=== PATIENT | female | born 1940 | race Caucasian/White ===

== ENCOUNTER 2018-08-24 13:54 | Inpatient (IN) | payer MEDICARE ==
[~2018-08-24] VITALS: Ht 154.9 cm; Wt 62.8 kg
--- NOTE | 2018-08-24 14:35 | NUR ---
pt to room from lob, changed into gown, responds approp to staff, NAD, comfort measures provided, fiend at BS, call light within reach.
--- NOTE | 2018-08-24 14:36 | NUR ---
ANALYTICAL CHEMIST: PT TO ED ROOM 39 FROM LOBBY AT THIS TIME
--- NOTE | 2018-08-24 14:59 | NUR ---
pt steadily ambulated to BR via personal FWW, back to [facility] awake & comfortable, responds approp to staff, NAD, friend at , call light within reach.
[2018-08-24 15:13] LABS: ALBUMIN 3.8 g/dL (3.4-5.0); ANION GAP 17 mmol/L (5-15); CALCIUM 9.6 mg/dL (8.5-10.1); CHLORIDE 87 mmol/L (98-107)
[2018-08-24 15:15] LABS: BASOPHILS # (AUTO) 0.01 x10^3/uL (0-0.1); BASOPHILS % (AUTO) 0 % (0-1); EOSINOPHILS # (AUTO) 1.06 x10^3/uL (0-0.4); EOSINOPHILS % (AUTO) 9 % (1-7); LYMPHOCYTES # (AUTO) 0.76 x10^3/uL (1-3.4); LYMPHOCYTES % (AUTO) 6 % (22-44); MD NO; MEAN CORPUSCULAR HEMOGLOBIN 34.9 pg (27.0-34.8); MEAN CORPUSCULAR HGB CONC 33.6 g/dL (32.4-35.8); MEAN CORPUSCULAR VOLUME 103.8 fL (80-100); MONOCYTES # (AUTO) 0.58 x10^3/uL (0.2-0.8); MONOCYTES % (AUTO) 5 % (2-9); NEUTROPHILS # (AUTO) 9.63 x10^3/uL (1.8-6.8); NEUTROPHILS % (AUTO) 80 % (42-75); PLATELET COUNT 287 x10^3/uL (130-400); RED BLOOD COUNT 3.76 x10^6/uL (3.82-5.3); RED CELL DISTRIBUTION WIDTH 13.8 % (9.6-15.2)
[2018-08-24 15:26] LABS: ALANINE AMINOTRANSFERASE 19 U/L (12-78); ALKALINE PHOSPHATASE 66 U/L (45-117); BILIRUBIN,TOTAL 0.4 mg/dL (0.2-1.0); CREATININE 3.89 mg/dL (0.55-1.02); FREE T4 (FREE THYROXINE) 1.35 ng/dL (0.76-1.46); TOTAL PROTEIN 7.4 g/dL (6.4-8.2)
[2018-08-24] MEDS ORDERED: SODIUM CHLORIDE 0.9% 1,000 ML IV ONE ×2 (15:29→16:17)
--- NOTE | 2018-08-24 15:55 | NUR ---
pt upright on gurney awake & comfortable. responds approp to staff, NAD, comfort measures provided, friend at BS, call light within reach.
[2018-08-24] MEDS ORDERED: SODIUM CHLORIDE FLUSH 10ML SYR IVF PRN (16:30)
[2018-08-24 16:34] LABS: HEMOGLOBIN A1C 6.4 % (4.2-6.3)
[2018-08-24 16:37] LABS: CULTURE INDICATED? YES; MICROSCOPIC INDICATED
[2018-08-24] MEDS ORDERED: NAPR-685 PO (16:44)
[2018-08-24] MEDS ORDERED: TRIA1TAB3 PO (16:44)
[2018-08-24] MEDS ORDERED: THIA100T27 PO (16:44)
[2018-08-24] MEDS ORDERED: ALPR0.254 PO (16:44)
[2018-08-24] MEDS ORDERED: VITA100T4 PO (16:44)
[2018-08-24] MEDS ORDERED: OMEP20TA62 PO (16:44)
[2018-08-24] MEDS ORDERED: LATA7.5D OP (16:44)
[2018-08-24] MEDS ORDERED: ALLO100T30 PO (16:44)
[2018-08-24] MEDS ORDERED: DORZ10DR21 OP (16:44)
[2018-08-24] MEDS ORDERED: HYDR-3240 PO (16:44)
[2018-08-24] MEDS ORDERED: IRBE300T16 PO (16:44)
[2018-08-24] MEDS ORDERED: PYRI100T2 PO (16:44)
[2018-08-24] MEDS ORDERED: TIOT4MIS3 INH (16:44)
[2018-08-24] MEDS ORDERED: ATOR20TA37 PO (16:44)
[2018-08-24] MEDS ORDERED: ASPI-496 PO (16:44)
[2018-08-24] MEDS ORDERED: ASCO100019 PO (16:44)
[2018-08-24] MEDS ORDERED: METF500T17 PO (16:44)
[2018-08-24] MEDS ORDERED: RANI150T23 PO (16:44)
[2018-08-24] MEDS ORDERED: ATEN50TA41 PO (16:44)
[2018-08-24] MEDS ORDERED: POTA10TA5 PO (16:44)
--- NOTE | 2018-08-24 17:02 | NUR ---
pt upright on gurney awake & comfortable, responds approp to staff, NAD, comfort measures provided, friend at BS, call light within reach.
--- NOTE | 2018-08-24 17:06 | NUR ---
Pt to be admitted to [facility], room 403-1. Report called to Eli.
[2018-08-24 18:01] LABS: CREATINE KINASE, TOTAL 48 U/L (26-192); FOLATE LEVEL 15.1 ng/mL (3.1-17.5)
[2018-08-24 18:03] VITALS: BP 133/57
[2018-08-24] MEDS ORDERED: DICL500C PO (18:23)
[2018-08-24 20:16] VITALS: BP 106/69
[2018-08-24 20:25] LABS: ANION GAP 16 mmol/L (5-15); CHLORIDE 91 mmol/L (98-107); CREATININE 3.16 mg/dL (0.55-1.02)
[2018-08-24] MEDS ORDERED: GUAIFENESIN/DM 200-20MG, 10ML UDC PO PRN (20:30)
[2018-08-24] MEDS ORDERED: OMEPRAZOLE 20 MG CAPSULE.DR PO PRN (20:30)
[2018-08-24] MEDS ORDERED: FAMOTIDINE 20 MG TABLET PO PRN (20:30)
[2018-08-24] MEDS ORDERED: LORazepam 1MG TABLET PO PRN ×4 (20:30)
[2018-08-24] MEDS ORDERED: hydrALAzine 20 MG/ML, 1ML IVPush PRN (20:30)
[2018-08-24] MEDS ORDERED: ACETAMINOPHEN 325 MG TABLET PO PRN (20:30)
[2018-08-24] MEDS ORDERED: LORazepam 2 MG/ML, 1ML IV PRN ×5 (20:30)
[2018-08-24] MEDS ORDERED: ONDANSETRON ODT 4 MG PO PRN (20:30)
[2018-08-24] MEDS ORDERED: HYDROcodone/APAP 5/325 TABLET PO PRN (20:30)
[2018-08-24] MEDS ORDERED: LORazepam 0.5MG TABLET PO PRN (20:30)
[2018-08-24] MEDS ORDERED: DOCUSATE 100 MG CAPSULE PO PRN (20:30)
[2018-08-24] MEDS ORDERED: ONDANSETRON 2MG/ML, 2ML IVPush PRN (20:30)
[2018-08-24] MEDS ORDERED: BISACODYL 10 MG SUPP PR PRN (20:30)
[2018-08-24] MEDS ORDERED: ATORVASTATIN 20 MG TABLET PO PRN (20:30)
[2018-08-24 20:46] LABS: CREATININE,URINE RANDOM 68.1 mg/dL
[2018-08-24] MEDS ORDERED: DICLOXACILLIN 500 MG CAPSULE PO SCH (21:00)
[2018-08-24] MEDS ORDERED: LATANOPROST OPHTH 0.005%, 2.5ML OP SCH (21:00)
[2018-08-24] MEDS ORDERED: LATANOPROST OPHTH 0.005%, 2.5ML EACHEYE SCH (21:00)
[2018-08-24] MEDS ORDERED: DORZOLAMIDE OPHTH 2%, 10ML OP SCH (21:00)
[2018-08-24] MEDS ORDERED: TIMOLOL OPHTH 0.5%, 5ML OP SCH (21:00)
[2018-08-24] MEDS: DIPHENHYDRAMINE 25 MG CAPSULE PO PRN ×2 (22:20→22:45)
[2018-08-24] MEDS: NS + 20MEQ KCL 1,000 ML IV SCH (22:20)
[2018-08-24] MEDS: HYDROcodone/APAP 5/325 TABLET PO SCH ×2 (22:20→22:45)
[2018-08-24] MEDS: CEFTRIAXONE PMX 1GM/50ML 50 ML IV SCH (22:20)
[2018-08-24] MEDS: DICLOXACILLIN 250 MG CAPSULE PO SCH (22:45)
[2018-08-24] MEDS: DORZOLAMIDE EACHEYE SCH (23:17)
[2018-08-24] MEDS: TIMOLOL EACHEYE SCH (23:17)
[2018-08-25 02:00] VITALS: BP 111/71
[2018-08-25] MEDS ORDERED: LEVO88TA4 PO (04:31)
[2018-08-25] MEDS: NS + 20MEQ KCL 1,000 ML IV SCH (05:35)
[2018-08-25 05:43] LABS: CALCIUM 8.3 mg/dL (8.5-10.1); CHLORIDE 97 mmol/L (98-107)
[2018-08-25 05:47] LABS: ANION GAP 14 mmol/L (5-15); CREATININE 2.19 mg/dL (0.55-1.02)
[2018-08-25 05:50] LABS: BASOPHILS # (AUTO) 0.01 x10^3/uL (0-0.1); BASOPHILS % (AUTO) 0 % (0-1); EOSINOPHILS # (AUTO) 0.78 x10^3/uL (0-0.4); EOSINOPHILS % (AUTO) 10 % (1-7); LYMPHOCYTES # (AUTO) 0.72 x10^3/uL (1-3.4); LYMPHOCYTES % (AUTO) 9 % (22-44); MD NO; MEAN CORPUSCULAR HEMOGLOBIN 35.6 pg (27.0-34.8); MEAN CORPUSCULAR HGB CONC 34.7 g/dL (32.4-35.8); MEAN CORPUSCULAR VOLUME 102.8 fL (80-100); MONOCYTES # (AUTO) 0.67 x10^3/uL (0.2-0.8); MONOCYTES % (AUTO) 9 % (2-9); NEUTROPHILS # (AUTO) 5.55 x10^3/uL (1.8-6.8); NEUTROPHILS % (AUTO) 72 % (42-75); PLATELET COUNT 219 x10^3/uL (130-400); RED BLOOD COUNT 3.04 x10^6/uL (3.82-5.3); RED CELL DISTRIBUTION WIDTH 14.1 % (9.6-15.2)
[2018-08-25] MEDS ORDERED: LEVOTHYROXINE 88 MCG TABLET ONE (06:43)
[2018-08-25] MEDS: LEVOTHYROXINE 88 MCG TABLET PO SCH (06:46)
[2018-08-25] MEDS ORDERED: DEXTROSE 4 GM TAB.CHEW PO PRN (07:00)
[2018-08-25] MEDS ORDERED: DEXTROSE 50%, 50ML SYRINGE IVPush PRN (07:00)
[2018-08-25] MEDS ORDERED: GLUCAGON 1 MG IM PRN (07:00)
[2018-08-25 07:26] VITALS: BP 103/60
[2018-08-25] MEDS: INSULIN LISPRO 100 UNITS/ML, PEN SQ-INSULIN SCH ×4 (07:30→21:34)
[2018-08-25] MEDS: THIAMINE 100MG TABLET PO SCH ×2 (08:51→08:55)
[2018-08-25] MEDS: PYRIDOXINE 50MG TABLET PO SCH (08:55)
[2018-08-25] MEDS: DICLOXACILLIN 250 MG CAPSULE PO SCH ×3 (08:55→21:41)
[2018-08-25] MEDS: LATANOPROST OPHTH 0.005%, 2.5ML EACHEYE SCH (08:55)
[2018-08-25] MEDS: MULTIVITAMINS/MINERALS TABLET PO SCH (08:56)
[2018-08-25] MEDS: SENNA/DOCUSATE TABLET PO SCH (08:56)
[2018-08-25] MEDS: SODIUM CHLORIDE FLUSH 10ML SYR IVF SCH ×2 (09:00→21:41)
[2018-08-25] MEDS ORDERED: ASPIRIN 81 MG TABLET EC PO SCH (09:00)
[2018-08-25] MEDS ORDERED: ATENOLOL 50 MG TABLET PO SCH (09:00)
[2018-08-25] MEDS ORDERED: VITAMIN E ACID SUCCINATE 100 UNIT PO SCH (09:00)
[2018-08-25] MEDS ORDERED: DIPHENHYDRAMINE 12.5MG/5ML, 10ML UDC PO PRN (13:30)
[2018-08-25] MEDS ORDERED: CALAMINE LOTION 180ML TP PRN (13:30)
[2018-08-25] MEDS: POTASSIUM CHLORIDE 40 MEQ in SODIUM CHLORIDE 0.45% 1,000 ML IV SCH (13:42)
[2018-08-25 14:15] VITALS: BP 94/58
[2018-08-25] MEDS: POTASSIUM CHLORIDE 20 MEQ TAB.ER.PRT PO SCH (16:43)
[2018-08-25] MEDS: hydrOXyzine 10MG TABLET PO SCH (16:43)
[2018-08-25 18:37] LABS: ANION GAP 11 mmol/L (5-15); CALCIUM 8.6 mg/dL (8.5-10.1); CHLORIDE 103 mmol/L (98-107); CREATININE 1.22 mg/dL (0.55-1.02)
[2018-08-25 18:38] VITALS: BP 103/49
[2018-08-25] MEDS: CEFTRIAXONE PMX 1GM/50ML 50 ML IV SCH (21:36)
[2018-08-25] MEDS: DORZOLAMIDE EACHEYE SCH (21:40)
[2018-08-25] MEDS: TIMOLOL EACHEYE SCH (21:40)
[2018-08-25] MEDS: HYDROcodone/APAP 5/325 TABLET PO SCH (21:42)
[2018-08-26] MEDS: POTASSIUM CHLORIDE 20 MEQ TAB.ER.PRT PO SCH ×3 (00:36→17:29)
[2018-08-26] MEDS: MINERA CRM, 60GM TP SCH ×3 (00:36→21:29)
[2018-08-26] MEDS: hydrOXyzine 10MG TABLET PO SCH ×4 (00:36→17:28)
[2018-08-26 00:41] VITALS: BP 108/64
[2018-08-26] MEDS: POTASSIUM CHLORIDE 40 MEQ in SODIUM CHLORIDE 0.45% 1,000 ML IV SCH ×2 (03:02→21:28)
[2018-08-26] MEDS: LEVOTHYROXINE 88 MCG TABLET PO SCH (05:26)
[2018-08-26 07:01] LABS: ALBUMIN 3.1 g/dL (3.4-5.0); ANION GAP 10 mmol/L (5-15); CALCIUM 8.8 mg/dL (8.5-10.1); CHLORIDE 105 mmol/L (98-107); CREATININE 0.86 mg/dL (0.55-1.02)
[2018-08-26 08:07] VITALS: BP 117/56
[2018-08-26] MEDS: DICLOXACILLIN 250 MG CAPSULE PO SCH ×3 (09:55→21:28)
[2018-08-26] MEDS: PYRIDOXINE 50MG TABLET PO SCH (09:55)
[2018-08-26] MEDS: MULTIVITAMINS/MINERALS TABLET PO SCH (09:56)
[2018-08-26] MEDS: THIAMINE 100MG TABLET PO SCH ×2 (09:56→09:57)
[2018-08-26] MEDS: SENNA/DOCUSATE TABLET PO SCH (09:56)
[2018-08-26] MEDS: LATANOPROST OPHTH 0.005%, 2.5ML EACHEYE SCH (10:05)
[2018-08-26] MEDS: INSULIN LISPRO 100 UNITS/ML, PEN SQ-INSULIN SCH ×4 (10:05→20:43)
[2018-08-26 10:34] LABS: MEAN CORPUSCULAR HEMOGLOBIN 34.7 pg (27.0-34.8); MEAN CORPUSCULAR HGB CONC 33.1 g/dL (32.4-35.8); MEAN CORPUSCULAR VOLUME 104.7 fL (80-100); MEAN PLATELET VOLUME 8.4 fL (7.4-10.4); PLATELET COUNT 239 x10^3/uL (130-400); RED BLOOD COUNT 3.14 x10^6/uL (3.82-5.3); RED CELL DISTRIBUTION WIDTH 14.2 % (9.6-15.2)
[2018-08-26 10:59] LABS: MD YES
[2018-08-26 11:01] LABS: <PLATELET ESTIMATE> ADEQUATE; <PLT MORPHOLOGY> NORMAL PLT MORPH; EOS#(MANUAL) 0.61 x10^3/uL (0.0-0.4); EOS% (MANUAL) 10 % (1-7); LYMPH#(MANUAL) 0.92 x10^3/uL (1-3.4); LYMPHS% (MANUAL) 15 % (22-44); MONOS#(MANUAL) 0.18 x10^3/uL (0.3-2.7); MONOS% (MANUAL) 3 % (2-9); SEG#(MANUAL) 4.39 x10^3/uL (1.8-6.8); SEGS% (MANUAL) 72 % (42-75)
[2018-08-26 12:01] VITALS: BP 133/67
[2018-08-26] MEDS: SODIUM CHLORIDE FLUSH 10ML SYR IVF SCH ×2 (12:27→21:28)
[2018-08-26] MEDS ORDERED: LEVOFLOXACIN/PMX 750MG/150ML 150 ML IV SCH (14:30)
[2018-08-26] MEDS: ERTAPENEM 0.5 GM in SODIUM CHLORIDE 0.9% 50 ML IV SCH (16:29)
[2018-08-26 21:25] VITALS: BP 130/66
[2018-08-26] MEDS: HYDROcodone/APAP 5/325 TABLET PO SCH (21:29)
[2018-08-26] MEDS: DORZOLAMIDE EACHEYE SCH (21:29)
[2018-08-26] MEDS: TIMOLOL EACHEYE SCH (21:29)
[2018-08-27] MEDS: hydrOXyzine 10MG TABLET PO SCH ×4 (00:18→21:14)
[2018-08-27 00:22] VITALS: BP 135/65
[2018-08-27] MEDS: LEVOTHYROXINE 88 MCG TABLET PO SCH (05:17)
[2018-08-27 06:39] VITALS: BP 141/68
[2018-08-27] MEDS: INSULIN LISPRO 100 UNITS/ML, PEN SQ-INSULIN SCH ×4 (07:00→21:00)
[2018-08-27] MEDS: THIAMINE 100MG TABLET PO SCH ×2 (09:00→09:08)
[2018-08-27] MEDS: SODIUM CHLORIDE FLUSH 10ML SYR IVF SCH ×2 (09:00→21:14)
[2018-08-27] MEDS: SENNA/DOCUSATE TABLET PO SCH ×2 (09:00→09:09)
[2018-08-27] MEDS: MINERA CRM, 60GM TP SCH ×2 (09:07→21:15)
[2018-08-27] MEDS: POTASSIUM CHLORIDE 20 MEQ TAB.ER.PRT PO SCH (09:08)
[2018-08-27] MEDS: PYRIDOXINE 50MG TABLET PO SCH (09:08)
[2018-08-27] MEDS: LATANOPROST OPHTH 0.005%, 2.5ML EACHEYE SCH (09:08)
[2018-08-27] MEDS: DICLOXACILLIN 250 MG CAPSULE PO SCH (09:09)
[2018-08-27] MEDS: MULTIVITAMINS/MINERALS TABLET PO SCH (09:09)
[2018-08-27] MEDS: POTASSIUM CHLORIDE 40 MEQ in SODIUM CHLORIDE 0.45% 1,000 ML IV SCH (11:15)
[2018-08-27 13:52] VITALS: BP 138/79
[2018-08-27] MEDS: ERTAPENEM 0.5 GM in SODIUM CHLORIDE 0.9% 50 ML IV SCH (15:52)
[2018-08-27 20:00] VITALS: BP 150/78
[2018-08-27] MEDS: HYDROcodone/APAP 5/325 TABLET PO SCH (21:13)
[2018-08-27] MEDS: TIMOLOL EACHEYE SCH (21:16)
[2018-08-27] MEDS: DORZOLAMIDE EACHEYE SCH (21:16)
[2018-08-28] MEDS: POTASSIUM CHLORIDE 40 MEQ in SODIUM CHLORIDE 0.45% 1,000 ML IV SCH ×2 (00:38→13:30)
[2018-08-28 03:05] VITALS: BP 122/68
[2018-08-28] MEDS: hydrOXyzine 10MG TABLET PO SCH ×4 (03:07→21:58)
[2018-08-28] MEDS: LEVOTHYROXINE 88 MCG TABLET PO SCH (04:06)
[2018-08-28 07:00] VITALS: BP 138/80
[2018-08-28] MEDS: LATANOPROST OPHTH 0.005%, 2.5ML EACHEYE SCH (08:26)
[2018-08-28] MEDS: INSULIN LISPRO 100 UNITS/ML, PEN SQ-INSULIN SCH ×3 (08:26→15:23)
[2018-08-28] MEDS: MULTIVITAMINS/MINERALS TABLET PO SCH (08:27)
[2018-08-28] MEDS: SODIUM CHLORIDE FLUSH 10ML SYR IVF SCH ×2 (08:27→21:58)
[2018-08-28] MEDS: MINERA CRM, 60GM TP SCH ×2 (08:27→21:59)
[2018-08-28] MEDS: SENNA/DOCUSATE TABLET PO SCH (08:27)
[2018-08-28 13:11] VITALS: BP 132/76
[2018-08-28] MEDS: ERTAPENEM 1 GM in SODIUM CHLORIDE 0.9% 50 ML IV SCH (15:23)
[2018-08-28 20:00] VITALS: BP 159/79
[2018-08-28] MEDS: DORZOLAMIDE EACHEYE SCH (21:00)
[2018-08-28] MEDS: TIMOLOL EACHEYE SCH (21:00)
[2018-08-28] MEDS: HYDROcodone/APAP 5/325 TABLET PO SCH (21:58)
[2018-08-29 02:00] VITALS: BP 156/80
[2018-08-29] MEDS: hydrOXyzine 10MG TABLET PO SCH ×4 (02:58→21:50)
[2018-08-29 03:44] LABS: ALANINE AMINOTRANSFERASE 22 U/L (12-78); ALBUMIN 2.7 g/dL (3.4-5.0); ANION GAP 8 mmol/L (5-15); CALCIUM 7.8 mg/dL (8.5-10.1); CHLORIDE 116 mmol/L (98-107); CREATININE 0.56 mg/dL (0.55-1.02)
[2018-08-29 03:46] LABS: ALKALINE PHOSPHATASE 49 U/L (45-117); BILIRUBIN,TOTAL 0.1 mg/dL (0.2-1.0); TOTAL PROTEIN 5.1 g/dL (6.4-8.2)
[2018-08-29] MEDS: LEVOTHYROXINE 88 MCG TABLET PO SCH (05:42)
[2018-08-29 08:23] VITALS: BP 146/89
[2018-08-29] MEDS: MINERA CRM, 60GM TP SCH ×2 (09:00→21:53)
[2018-08-29] MEDS: MULTIVITAMINS/MINERALS TABLET PO SCH (09:00)
[2018-08-29] MEDS: SENNA/DOCUSATE TABLET PO SCH (09:00)
[2018-08-29] MEDS: LATANOPROST OPHTH 0.005%, 2.5ML EACHEYE SCH (09:08)
[2018-08-29] MEDS: SODIUM CHLORIDE FLUSH 10ML SYR IVF SCH ×2 (09:08→21:53)
[2018-08-29 14:02] VITALS: BP 152/96
[2018-08-29] MEDS: ERTAPENEM 1 GM in SODIUM CHLORIDE 0.9% 50 ML IV SCH (15:52)
[2018-08-29] MEDS ORDERED: LEVO88TA2 PO (18:00)
[2018-08-29] MEDS ORDERED: DOCU-131 PO (18:00)
[2018-08-29] MEDS ORDERED: CALA118S2 TP (18:00)
[2018-08-29] MEDS ORDERED: DORZOLAMIDE EACHEYE (18:00)
[2018-08-29] MEDS ORDERED: HYDR10TA4 PO (18:00)
[2018-08-29] MEDS ORDERED: TIMOLOL EACHEYE (18:00)
[2018-08-29] MEDS ORDERED: HYDR-3240 PO (18:00)
[2018-08-29] MEDS ORDERED: LATA2.5D3 EACHEYE (18:00)
[2018-08-29] MEDS ORDERED: STIOLTO INH (18:00)
[2018-08-29 20:00] VITALS: BP 161/79
[2018-08-29] MEDS: STIOLTO INH SCH (21:00)
[2018-08-29] MEDS ORDERED: LATANOPROST OPHTH 0.005%, 2.5ML EACHEYE SCH (21:00)
[2018-08-29] MEDS: TIMOLOL EACHEYE SCH (21:00)
[2018-08-29] MEDS: DORZOLAMIDE EACHEYE SCH (21:00)
[2018-08-29] MEDS: HYDROcodone/APAP 5/325 TABLET PO SCH (21:50)
[2018-08-30 02:00] VITALS: BP 148/80
[2018-08-30] MEDS: hydrOXyzine 10MG TABLET PO SCH ×3 (04:29→14:51)
[2018-08-30] MEDS: LEVOTHYROXINE 88 MCG TABLET PO SCH (04:29)
[2018-08-30 07:21] VITALS: BP 142/79
[2018-08-30] MEDS: DORZOLAMIDE EACHEYE SCH (09:00)
[2018-08-30] MEDS: TIMOLOL EACHEYE SCH (09:00)
[2018-08-30] MEDS: SENNA/DOCUSATE TABLET PO SCH (09:00)
[2018-08-30] MEDS: MULTIVITAMINS/MINERALS TABLET PO SCH (09:00)
[2018-08-30] MEDS: STIOLTO INH SCH (09:00)
[2018-08-30] MEDS: SODIUM CHLORIDE FLUSH 10ML SYR IVF SCH (09:44)
[2018-08-30] MEDS: MINERA CRM, 60GM TP SCH (09:44)
[2018-08-30 14:10] VITALS: BP 139/82
[2018-08-30] MEDS: ERTAPENEM 1 GM in SODIUM CHLORIDE 0.9% 50 ML IV SCH (14:51)
== END 2018-08-30 15:47 | DRG 640 ==
LOC: ED 16:12 → EDIP 16:17 → ED 16:37 → 4EST 17:34
PROVIDERS: ADMIT Hospitalist; ATTEND Hospitalist
PROC: 02HV33Z Insertion of Infusion Device into Superior Vena Cava, Percutaneous Approach (ICD-10-PCS; principal; 2018-08-28)
PROC: B548ZZA Ultrasonography of Superior Vena Cava, Guidance (ICD-10-PCS; 2018-08-28)
PROC: B5181ZA Fluoroscopy of Superior Vena Cava using Low Osmolar Contrast, Guidance (ICD-10-PCS; 2018-08-28)
DX: E87.1 Hypo-osmolality and hyponatremia (principal); N17.0 Acute kidney failure with tubular necrosis; N39.0 Urinary tract infection, site not specified; E87.2 Acidosis; B96.1 Klebsiella pneumoniae [K. pneumoniae] as the cause of diseases classified elsewhere; Z16.12 Extended spectrum beta lactamase (ESBL) resistance; D63.8 Anemia in other chronic diseases classified elsewhere; E07.9 Disorder of thyroid, unspecified; G89.29 Other chronic pain; M10.9 Gout, unspecified; R39.15 Urgency of urination; B95.8 Unspecified staphylococcus as the cause of diseases classified elsewhere; D72.1 Eosinophilia; D75.89 Other specified diseases of blood and blood-forming organs; E05.90 Thyrotoxicosis, unspecified without thyrotoxic crisis or storm; E06.3 Autoimmune thyroiditis; E11.22 Type 2 diabetes mellitus with diabetic chronic kidney disease; E11.65 Type 2 diabetes mellitus with hyperglycemia; E78.5 Hyperlipidemia, unspecified; E83.39 Other disorders of phosphorus metabolism; E86.0 Dehydration; E87.6 Hypokalemia; F10.10 Alcohol abuse, uncomplicated; E11.42 Type 2 diabetes mellitus with diabetic polyneuropathy; H40.9 Unspecified glaucoma; I12.9 Hypertensive chronic kidney disease with stage 1 through stage 4 chronic kidney disease, or unspecified chronic kidney disease; J44.9 Chronic obstructive pulmonary disease, unspecified; K21.9 Gastro-esophageal reflux disease without esophagitis; K59.00 Constipation, unspecified; L29.9 Pruritus, unspecified; N18.3 Chronic kidney disease, stage 3 (moderate); R32 Unspecified urinary incontinence; Z66 Do not resuscitate; Z87.440 Personal history of urinary (tract) infections; Z87.891 Personal history of nicotine dependence
CPT/HCPCS: 0399T; 36415; 36573; 71046; 74021; 76770; 80048; 80053; 80069; 80074; 81001; 82043; 82550; 82570; 82607; 82746; 82962; 83036; 83605; 83735; 83930; 83935; 84100; 84156; 84300; 84439; 84443; 84550; 85025; 85651; 87040; 87070; 87077; 87086; 87186; 87205; 93306; 99285; G0378; J0696; J1335; J1956; J3480; C1751; J1815; J7030; Q0163

== ENCOUNTER 2019-01-05 13:53 | Inpatient (IN) | payer MEDICARE ==
[~2019-01-05] VITALS: Ht 154.9 cm; Wt 55.2 kg
[~2019-01-05 13:53] MED LIST: ALLO100T30 PO; ALPR0.254 PO; ASCO100019 PO; ASPI-496 PO; ATEN50TA41 PO; ATOR20TA37 PO; CALA118S2 TP; DICL500C PO; DOCU-131 PO; DORZ10DR21 OP; DORZOLAMIDE EACHEYE; HYDR-3240 PO; HYDR10TA4 PO; IRBE300T16 PO; LATA2.5D3 EACHEYE; LATA7.5D OP; LEVO88TA2 PO; LEVO88TA4 PO; METF500T17 PO; NAPR-685 PO; OMEP20TA62 PO; POTA10TA5 PO; PYRI100T2 PO; RANI150T23 PO; STIOLTO INH; THIA100T27 PO; TIMOLOL EACHEYE; TIOT4MIS3 INH; TRIA1TAB3 PO; VITA100T4 PO
--- NOTE | 2019-01-05 14:26 | NUR ---
Pt ambulates with steady gait and balance to restroom. Pt ambulates back to room. Pt connected to NIBP, continous pulse ox, and engine monitor. Both bedrails up for safety measures. Pt denies cp, sob, n/v/d, or trauma. NADN. vp of technology establishing PIV at bedside. Call light within reach.
[2019-01-05] MEDS ORDERED: LABETALOL 5 MG/ML SYRINGE IVPush ONE ×2 (14:30→15:30)
[2019-01-05] MEDS ORDERED: SODIUM CHLORIDE FLUSH 10ML SYR IVF ONE (14:30)
[2019-01-05 14:55] LABS: MICROSCOPIC AUTO
[2019-01-05 14:59] LABS: CULTURE INDICATED? NO
[2019-01-05 15:00] LABS: BASOPHILS # (AUTO) 0.03 x10^3/uL (0-0.1); BASOPHILS % (AUTO) 1 % (0-1); EOSINOPHILS # (AUTO) 0.29 x10^3/uL (0-0.4); EOSINOPHILS % (AUTO) 5 % (1-7); LYMPHOCYTES # (AUTO) 1.45 x10^3/uL (1-3.4); LYMPHOCYTES % (AUTO) 25 % (22-44); MD NO; MEAN CORPUSCULAR HEMOGLOBIN 30.3 pg (27.0-34.8); MEAN CORPUSCULAR HGB CONC 32.6 g/dL (32.4-35.8); MEAN PLATELET VOLUME 8.4 fL (7.4-10.4); MONOCYTES # (AUTO) 0.42 x10^3/uL (0.2-0.8); MONOCYTES % (AUTO) 7 % (2-9); NEUTROPHILS # (AUTO) 3.51 x10^3/uL (1.8-6.8); NEUTROPHILS % (AUTO) 62 % (42-75); PLATELET COUNT 193 x10^3/uL (130-400); RED BLOOD COUNT 5.66 x10^6/uL (3.82-5.3); RED CELL DISTRIBUTION WIDTH 16.9 % (9.6-15.2)
[2019-01-05 15:10] LABS: ALBUMIN 4.1 g/dL (3.4-5.0); ANION GAP 9 mmol/L (5-15); CALCIUM 9.3 mg/dL (8.5-10.1); CHLORIDE 111 mmol/L (98-107); CREATININE 0.55 mg/dL (0.55-1.02)
[2019-01-05 15:12] LABS: TROPONIN I < 0.015 ng/mL (0.000-0.045)
[2019-01-05] MEDS ORDERED: CARVEDILOL 3.125 MG TABLET PO ONE (15:30)
[2019-01-05] MEDS ORDERED: CARVEDILOL 3.125 MG TABLET ONE (15:57)
[2019-01-05] MEDS ORDERED: ASPI-515 PO (16:07)
[2019-01-05] MEDS ORDERED: OLME40TA12 PO (16:07)
[2019-01-05] MEDS ORDERED: GABA300C10 PO (16:07)
--- NOTE | 2019-01-05 16:08 | NUR ---
TASK RN: NATALIIA FROST COMPLETED
[2019-01-05] MEDS ORDERED: ACETAMINOPHEN 325 MG TABLET ONE (18:25)
[2019-01-05] MEDS ORDERED: hydrALAzine 20 MG/ML, 1ML ONE (18:27)
[2019-01-05] MEDS ORDERED: ACETAMINOPHEN 325 MG TABLET PO ONE (18:30)
--- NOTE | 2019-01-05 18:39 | NUR ---
Provided pt medication per EMAR for headache and hypertension. NADN. Pt connected to NIBP, continous pulse ox, and warehouse operator. Pt denies cp, sob, n/v/d, or trauma. Pt states I just have the headache, and I was dizzy before. Admitting provider at bedside. Both bedrails up for safety measures. Call light within reach. Provided pt dinner tray. No other needs expressed at this time.
--- NOTE | 2019-01-05 18:54 | NUR ---
received report from RL Bautista. patient ambulated to bathroom with cane. patient to ultrasound.
[2019-01-05] MEDS ORDERED: ONDANSETRON ODT 4 MG PO PRN (19:00)
[2019-01-05] MEDS: CARVEDILOL 25 MG TABLET PO SCH (19:00)
[2019-01-05] MEDS ORDERED: hydrALAzine 20 MG/ML, 1ML IV ONE (19:00)
[2019-01-05] MEDS ORDERED: BISACODYL 10 MG SUPP PR PRN (19:00)
[2019-01-05] MEDS ORDERED: POLYETHYLENE GLYCOL 17 GM PACKET PO PRN (19:00)
[2019-01-05] MEDS ORDERED: hydrALAzine 20 MG/ML, 1ML IVPush PRN (19:00)
[2019-01-05] MEDS ORDERED: ACETAMINOPHEN 325 MG TABLET PO PRN (19:00)
--- NOTE | 2019-01-05 19:04 | NUR ---
Provided bedside report to RL Way. All questions answered. RL Way to assume care of pt.
[2019-01-05 19:39] LABS: HEMOGLOBIN A1C 5.9 % (4.2-6.3)
--- NOTE | 2019-01-05 19:44 | NUR ---
bed assigned. report to RL Hairston.
[2019-01-05] MEDS ORDERED: LATANOPROST OPHTH 0.005%, 2.5ML EACHEYE SCH ×3 (21:00→23:00)
[2019-01-05] MEDS ORDERED: LOSARTAN 50MG TABLET PO SCH (21:00)
[2019-01-05] MEDS ORDERED: GABAPENTIN 300 MG CAPSULE PO SCH (21:00)
[2019-01-05] MEDS: TIMOLOL EACHEYE SCH (21:00)
[2019-01-05] MEDS: DORZOLAMIDE EACHEYE SCH (21:00)
[2019-01-05 21:39] VITALS: BP 175/83
[2019-01-05 21:56] LABS: TROPONIN I 0.025 ng/mL (0.000-0.045)
[2019-01-05 22:07] VITALS: BP 184/91
[2019-01-05] MEDS: SODIUM CHLORIDE FLUSH 10ML SYR IVF SCH (22:24)
[2019-01-05 23:01] VITALS: BP 143/65
[2019-01-05] MEDS: TIMOLOL OPHTH 0.5%, 5ML EACHEYE SCH (23:17)
[2019-01-06 00:18] VITALS: BP 154/83
[2019-01-06 03:48] LABS: ALBUMIN 3.5 g/dL (3.4-5.0); ANION GAP 9 mmol/L (5-15); BASOPHILS # (AUTO) 0.03 x10^3/uL (0-0.1); BASOPHILS % (AUTO) 0 % (0-1); CALCIUM 9.2 mg/dL (8.5-10.1); CHLORIDE 107 mmol/L (98-107); EOSINOPHILS # (AUTO) 0.27 x10^3/uL (0-0.4); EOSINOPHILS % (AUTO) 4 % (1-7); LYMPHOCYTES # (AUTO) 1.93 x10^3/uL (1-3.4); LYMPHOCYTES % (AUTO) 27 % (22-44); MD NO; MEAN CORPUSCULAR HEMOGLOBIN 30.7 pg (27.0-34.8); MEAN CORPUSCULAR HGB CONC 32.7 g/dL (32.4-35.8); MEAN CORPUSCULAR VOLUME 94.1 fL (80-100); MONOCYTES # (AUTO) 0.79 x10^3/uL (0.2-0.8); MONOCYTES % (AUTO) 11 % (2-9); NEUTROPHILS # (AUTO) 4.14 x10^3/uL (1.8-6.8); NEUTROPHILS % (AUTO) 58 % (42-75); PLATELET COUNT 195 x10^3/uL (130-400); RED BLOOD COUNT 5.44 x10^6/uL (3.82-5.3); RED CELL DISTRIBUTION WIDTH 17.1 % (9.6-15.2)
[2019-01-06 03:54] LABS: ALANINE AMINOTRANSFERASE 16 U/L (12-78); ALKALINE PHOSPHATASE 96 U/L (45-117); BILIRUBIN,TOTAL 1.2 mg/dL (0.2-1.0); CREATININE 0.59 mg/dL (0.55-1.02); TOTAL PROTEIN 6.8 g/dL (6.4-8.2)
[2019-01-06] MEDS: CARVEDILOL 25 MG TABLET PO SCH (05:51)
[2019-01-06] MEDS ORDERED: LEVOTHYROXINE 88 MCG TABLET PO SCH (06:00)
[2019-01-06 06:23] VITALS: BP 122/76
[2019-01-06] MEDS ORDERED: POTASSIUM CHLORIDE 20 MEQ TAB.ER.PRT PO ONE (08:00)
[2019-01-06] MEDS: TIMOLOL EACHEYE SCH (09:00)
[2019-01-06] MEDS ORDERED: SENNA/DOCUSATE TABLET PO SCH (09:00)
[2019-01-06] MEDS ORDERED: ASPIRIN 81 MG TABLET EC PO SCH (09:00)
[2019-01-06] MEDS: SODIUM CHLORIDE FLUSH 10ML SYR IVF SCH (09:00)
[2019-01-06] MEDS: DORZOLAMIDE EACHEYE SCH (09:00)
[2019-01-06] MEDS: TIMOLOL OPHTH 0.5%, 5ML EACHEYE SCH (09:48)
[2019-01-06] MEDS ORDERED: CARV25TA12 PO (11:06)
== END 2019-01-06 12:16 | disposition home or self-care (01) | DRG 305 ==
LOC: ED 15:21 → EDIP 15:22 → ED 15:41 → 5SO 20:04
PROVIDERS: ADMIT Internal Medicine; ATTEND Internal Medicine
DX: I16.0 Hypertensive urgency (principal); D75.1 Secondary polycythemia; E06.3 Autoimmune thyroiditis; E11.319 Type 2 diabetes mellitus with unspecified diabetic retinopathy without macular edema; E11.42 Type 2 diabetes mellitus with diabetic polyneuropathy; E78.5 Hyperlipidemia, unspecified; E87.6 Hypokalemia; H40.9 Unspecified glaucoma; I10 Essential (primary) hypertension; J44.9 Chronic obstructive pulmonary disease, unspecified; M10.9 Gout, unspecified; Z66 Do not resuscitate; Z79.899 Other long term (current) drug therapy; Z82.49 Family history of ischemic heart disease and other diseases of the circulatory system; Z87.891 Personal history of nicotine dependence; Z90.711 Acquired absence of uterus with remaining cervical stump; Z98.49 Cataract extraction status, unspecified eye; Z79.82 Long term (current) use of aspirin
CPT/HCPCS: 36415; 71045; 76770; 80048; 80053; 81001; 82040; 83036; 84484; 85025; 93005; 96374; 96375; G0378; J0360